=== PATIENT | female | born 1990 | race Asian ===

== ENCOUNTER 2018-12-26 16:30 | Emergency (ER) | payer SELFPAY ==
[~2018-12-26] VITALS: Ht 167.6 cm; Wt 83.4 kg
[2018-12-26 16:33] VITALS: Ht 167.6 cm; Wt 83.4 kg
[2018-12-26] MEDS ORDERED: ACET-141 PO (21:01)
--- NOTE | 2018-12-26 21:06 | ERD ---
ER Documentation Chief Complaint Chief Complaint Patient has a hearing deficit complains of vag bleed x 2 days HPI 28-year-old female with hearing deficit complaints of vaginal bleeding x2 days. Patient state that she is s, last period was about 2 months ago. She is currently going through about 2 pads per day. She did pass some clots today and thinks that she may have had a miscarriage. Denies any fevers. She has mild pelvic pain noted to be 2 out of 10. She also complains of mild dizziness. No modifying factors noted. No treatment tried at home. ROS All systems reviewed and are negative except as per history of present illness. Medications Home Meds Active Scripts Acetaminophen* (Acetaminophen*) 500 MG Extra Strength Tablet, 500 MG PO Q4H PRN for PAIN AND OR ELEVATED TEMP, #30 TAB Prov:JANNETTE MARTIN 12/26/18 Allergies Allergies: Coded Allergies: No Known Allergy (Unverified , 12/26/18) PMhx/Soc Medical and Surgical Hx: pt denies Surgical Hx History of Surgery: No Hx Neurological Disorder: No Hx Respiratory Disorders: No Hx Cardiac Disorders: No Hx Psychiatric Problems: No Hx Miscellaneous Medical Probl: Yes (hearing deficit) Hx Alcohol Use: No Hx Substance Use: No Hx Tobacco Use: No Smoking Status: Never smoker FmHx Family History: No coronary disease Physical Exam Vitals Vital Signs Date Temp Pulse Resp B/P (MAP) Pulse Ox O2 O2 Flow FiO2 Time Delivery Rate 12/26/18 97.9 85 20 138/80 100 16:33 (99) Physical Exam Const: No acute distress Resp: Clear to auscultation bilaterally Cardio: Regular rate and rhythm, no murmurs Abd: Soft, non tender, non distended. Normal bowel sounds Skin: No petechiae or rashes Back: No midline or flank tenderness Ext: No cyanosis, or edema Neur: Awake and alert Psych: Normal Mood and Affect Result Diagram: 12/26/181916 Results 24 hrs Laboratory Tests Test 12/26/18 19:17 White Blood Count 10.4 10^3/ul Red Blood Count 5.08 10^6/ul Hemoglobin 12.6 g/dl Hematocrit 38.6 % Mean Corpuscular Volume 76.0 fl Mean Corpuscular Hemoglobin 24.8 pg Mean Corpuscular Hemoglobin Concent 32.6 g/dl Red Cell Distribution Width 14.0 % Platelet Count 344 10^3/UL Mean Platelet Volume 10.7 fl Immature Granulocytes % 0.800 % Neutrophils % 57.5 % Lymphocytes % 31.8 % Monocytes % 6.8 % Eosinophils % 2.3 % Basophils % 0.8 % Nucleated Red Blood Cells % 0.0 /100WBC Immature Granulocytes # 0.080 10^3/ul Neutrophils # 6.0 10^3/ul Lymphocytes # 3.3 10^3/ul Monocytes # 0.7 10^3/ul Eosinophils # 0.2 10^3/ul Basophils # 0.1 10^3/ul Nucleated Red Blood Cells # 0.0 10^3/ul Urine Color YELLOW Urine Clarity CLEAR Urine pH 6.0 Urine Specific [place] 1.015 Urine Ketones NEGATIVE mg/dL Urine Nitrite NEGATIVE mg/dL Urine Bilirubin NEGATIVE mg/dL Urine Urobilinogen NEGATIVE mg/dL Urine Leukocyte Esterase NEGATIVE Juanita/ul Urine Microscopic RBC 41 /HPF Urine Microscopic WBC 1 /HPF Urine Bacteria FEW /HPF Urine Hemoglobin 3+ mg/dL Urine Glucose NEGATIVE mg/dL Urine Total Protein NEGATIVE mg/dl Beta HCG, Quantitative < 2.4 mIU/ml Procedures/MDM Medical Decision Making: Differential diagnosis includes but not limited to spontaneous , ovarian cyst, uterine fibroid, ectopic . Patient appeared well on physical examination. CBC showed no anemia, no elevated WBC to suggest systemic infection. UA did not indicate infection Beta hCG level was less than 2.4 Pelvic ultrasound showed no intrauterine gestation. Patient likely has miscarriage Advised that she will need to follow with HEEL SEAT FILLER if her bleeding or if she develops severe pain. Currently she has mild pain. Given prescription for Tylenol. Patient advised to follow up with PCP in 1-2 days. Patient advised to return to ED for new or worsening symptoms. Patient stable on discharge from the ED. Disclaimer: Inadvertent spelling and grammatical errors are likely due to EHR/dictation software use and do not reflect on the overall quality of patient care. Also, please note that the electronic time recorded on this note does not necessarily reflect the actual time of the patient encounter. Departure Diagnosis: Primary Impression: Miscarriage Condition: Fair Patient Instructions: Miscarriage, Spontaneous (Completed) Referrals: [facility] YOU HAVE RECEIVED A MEDICAL SCREENING EXAM AND THE RESULTS INDICATE THAT YOU DO NOT HAVE A CONDITION THAT REQUIRES URGENT TREATMENT IN THE EMERGENCY DEPARTMENT. FURTHER EVALUATION AND TREATMENT OF YOUR CONDITION CAN WAIT UNTIL YOU ARE SEEN IN YOUR DOCTORS OFFICE WITHIN THE NEXT 1-2 DAYS. IT IS YOUR RESPONSIBILITY TO MAKE AN APPOINTMENT FOR FOLOW-UP CARE. IF YOU HAVE A PRIMARY DOCTOR --you should call your primary doctor and schedule an appointment IF YOU DO NOT HAVE A PRIMARY DOCTOR YOU CAN CALL OUR PHYSICIAN REFERRAL HOTLINE AT IF YOU CAN NOT AFFORD TO SEE A PHYSICIAN YOU CAN CHOSE FROM THE FOLLOWING [facility] [address] [facility] [address] [place] [facility]. [facility] [address] [facility] [address] [facility] [address] [facility] [facility]. [address] Additional Instructions: Call your primary care doctor TOMORROW for an appointment during the next 1-2 days.See the doctor sooner or return here if your condition worsens before your appointment time. Follow up with HEEL SEAT FILLER if severe pain or heavy vaginal bleeding or return to ER. JANNETTE MARTIN DO December 26, 2018 21:06
[2018-12-26 21:13] VITALS: BP 141/91; PULSE 77; RESP 16
== END 2018-12-26 21:14 | disposition home or self-care (01) ==
LOC: FTE 16:30
DX: O03.9 Complete or unspecified spontaneous abortion without complication (principal); R10.2 Pelvic and perineal pain
CPT/HCPCS: 36415; 76801; 81001; 84702; 85025; 86900; 86901

== ENCOUNTER → 2019-02-28 | Emergency (ER) | payer MEDICAID ==
[~2019-02-28] VITALS: Ht 162.6 cm; Wt 82.4 kg
[~2019-02-28] MED LIST: ACET-141 PO; NORE-89 PO
[2019-02-28 09:32] VITALS: BP 122/56; PULSE 68; RESP 16; Ht 162.6 cm; Wt 82.4 kg
--- NOTE | 2019-02-28 11:22 | ERD ---
ER Documentation Chief Complaint Chief Complaint vag bleed since 01/29 , feels tired HPI 28-year-old female presenting with vaginal bleeding x1 month. Patient states that she passes clots. She had a miscarriage. She still having some bleeding and states she goes through 1 pad a day. She states she occasionally feels dizzy. Denies any chest pain or shortness of breath. Denies fevers. Denies other medical problems. NKDA. Surgical history denies. Social history denies ROS All systems reviewed and are negative except as per history of present illness. Medications Home Meds Active Scripts Norethindrone AC-Eth Estradiol (Loestrin 21 1.5-30 Tablet) 1 Each Tablet, 1 EACH PO DAILY, #28 TAB Prov:KEILY TRAYLOR PA-C 02/28/19 Acetaminophen* (Acetaminophen*) 500 MG Extra Strength Tablet, 500 MG PO Q4H PRN for PAIN AND OR ELEVATED TEMP, #30 TAB Prov:JANNETTE MARTIN DO 12/26/18 Allergies Allergies: Coded Allergies: No Known Allergy (Unverified , 12/26/18) PMhx/Soc History of Surgery: No Hx Neurological Disorder: No Hx Respiratory Disorders: No Hx Cardiac Disorders: No Hx Psychiatric Problems: No Hx Miscellaneous Medical Probl: Yes (DEAF) Hx Alcohol Use: No Hx Substance Use: No Hx Tobacco Use: No FmHx Family History: No diabetes, No coronary disease, No other Physical Exam Vitals Vital Signs Date Temp Pulse Resp B/P (MAP) Pulse Ox O2 O2 Flow FiO2 Time Delivery Rate 02/28/19 98.1 68 16 122/56 99 09:32 (78) Physical Exam GENERAL: The patient is well-appearing, well-nourished, in no acute distress HEENT: Atraumatic. Conjunctivae are pink. Pupils equal, round, and reactive to light. There is no scleral icterus. Tympanic membranes clear bilaterally. Oropharynx clear. CHEST: Clear to auscultation bilaterally. There are no rales, wheezes or rhonchi. HEART: Regular rate and rhythm. No murmurs, clicks, rubs or gallops. ABDOMEN:Soft, nontender and nondistended. Good bowel sounds. No rebound or guarding. No gross peritonitis. No gross organomegaly or masses. Result Diagram: 02/28/19 0946 Results 24 hrs Laboratory Tests Test 02/28/19 09:45 02/28/19 09:46 02/28/19 10:08 Beta HCG, Quantitative < 2.4 mIU/ml White Blood Count 10.1 10^3/ul Red Blood Count 5.57 10^6/ul Hemoglobin 13.2 g/dl Hematocrit 40.9 % Mean Corpuscular Volume 73.4 fl Mean Corpuscular Hemoglobin 23.7 pg Mean Corpuscular 32.3 g/dl Hemoglobin Concent Red Cell Distribution Width 13.7 % Platelet Count 321 10^3/UL Mean Platelet Volume 10.9 fl Immature Granulocytes % 0.900 % Neutrophils % 66.1 % Lymphocytes % 24.2 % Monocytes % 6.1 % Eosinophils % 1.9 % Basophils % 0.8 % Nucleated Red Blood Cells % 0.0 /100WBC Immature Granulocytes # 0.090 10^3/ul Neutrophils # 6.7 10^3/ul Lymphocytes # 2.5 10^3/ul Monocytes # 0.6 10^3/ul Eosinophils # 0.2 10^3/ul Basophils # 0.1 10^3/ul Nucleated Red Blood Cells # 0.0 10^3/ul Urine Color YELLOW Urine Clarity CLEAR Urine pH 6.0 Urine Specific [place] 1.012 Urine Ketones NEGATIVE mg/dL Urine Nitrite NEGATIVE mg/dL Urine Bilirubin NEGATIVE mg/dL Urine Urobilinogen NEGATIVE mg/dL Urine Leukocyte Esterase NEGATIVE Juanita/ul Urine Microscopic RBC 127 /HPF Urine Microscopic WBC 1 /HPF Urine Squamous Epithelial Cells FEW /HPF Urine Hemoglobin 3+ mg/dL Urine Glucose NEGATIVE mg/dL Urine Total Protein NEGATIVE mg/dl Procedures/[facility] DIAGNOSTIC IMAGING REPORT Patient: SNEHAL FERNANDEZ : 1990 Age: 28 Sex: F MR #: [id number] DOS: 02/28/19 0946 Ordering MD: BUNNY TRAYLOR PA-C [facility] Room/Bed: PROCEDURE: US Pelvis. CLINICAL INDICATION: vaginal bleeding TECHNIQUE: Multiple sonographic images of the pelvis were obtained utilizing a transabdominal and endovaginal technique. The images were reviewed on a PACS workstation. COMPARISON: None. FINDINGS: The uterus is normal in size and demonstrates a normal appearance of the myometrium. The uterus measures 5.9 x 3.1 x 3.6 cm in size. There are Nabothian cysts in the cervix. The endometrial stripe is heterogeneous in appearance and has the thickness of 11 mm. No intrauterine gestation is noted. The ovaries are normal in size and echogenicity. Normal Doppler flow is identified in both ovaries. The right ovary measures 2.7 x 1.8 x 2.7 cm. The left ovary measures 3.7 x 0.6 x 2.4 cm. No free fluid is present within the pelvis.. RPTAT: AA IMPRESSION: No intrauterine gestation visualized. Differential diagnosis includes early , missed or ectopic . Follow-up ultrasound and HCG levels is recommended. MDM: 28-year-old female presents with vaginal bleeding. Patient's hemoglobin is stable. Patient does not have significant pain on ultrasound. Patient likely is having post miscarriage bleeding with no signs of hemorrhage. Patient ultrasound is within normal limits. Patient is discharged with strict ER precautions and told to follow-up with primary care within 1 to 2 days for close evaluation. Patient is discharged with hormonal medication. All questions answered at discharge Departure Diagnosis: Primary Impression: Vaginal bleeding Condition: Stable Patient Instructions: Menorrhagia Referrals: MANAGER [place] [id number] [facility] [address] [place], [place] [id number] [address]ICE [address].ABUSLEME TIFFANY [address] [place] [place] [phone] [facility] [address] [place] [place] [phone] [facility] [address] [facility] [address] [address] [place], [place] [phone] [facility] [address] [place] [address] [address] [facility] [id number] - YASM[address] CABAN [address], [place] [phone] [address] SANABRIA, MEHUL [address] [facility] [address], [place] [address] [address] [address] [place] [address] Additional Instructions: FOLLOW UP WITH YOUR PRIMARY CARE PHYSICIAN TOMORROW.Return to this facility if you are not improving as expected. KEILY TRAYLOR PA-C Feb 28, 2019 11:22
== END | disposition home or self-care (01) ==
LOC: FTE 09:27
DX: O20.9 Hemorrhage in early pregnancy, unspecified (principal); Z3A.00 Weeks of gestation of pregnancy not specified
CPT/HCPCS: 36415; 76801; 76817; 81001; 84702; 85025; 86900; 86901

== ENCOUNTER 2019-03-15 15:51 | Emergency (ER) | payer MEDICAID ==
[~2019-03-15] VITALS: Ht 160 cm; Wt 82.3 kg
[2019-03-15 15:55] VITALS: Ht 160 cm; Wt 82.3 kg
--- NOTE | 2019-03-15 18:23 | ERD ---
ER Documentation Chief Complaint Chief Complaint Pt with c/o dyuria X 3 days. recently seen for VB . HPI History and physical exam and plan of care discussion performed via magazine publisher services This is a 28-year-old female patient who presents emergency room with complaint of lower pelvic pain and pain with urination over the last 3 days. No fevers, + back pain, + vaginal discharge, + vaginal itching, states that she has redness to bilateral labia with itching, denies vaginal bleeding. Patient states on December 29 she had a miscarriage and was prescribed medication to stop the bleeding, February 28 return to the emergency room for vaginal bleeding to which she underwent a D&C. She has not followed up with gynecology or her primary care provider. ROS All systems reviewed and are negative except as per history of present illness. Medications Home Meds Active Scripts Oon794/Iron/Folic/Dha ( Formula-Dha Softgel) 1 Each Capsule, 1 EACH PO DAILY for 30 Days, #30 CAP Prov:CROW CARUSO NP 03/15/19 Ibuprofen* (Motrin*) 600 Mg Tab, 600 MG PO Q6, #15 TAB Prov:CROW CARUSO NP 03/15/19 Acetaminophen* (Tylenol*) 325 Mg Tablet, 2 TAB PO Q8 PRN for PAIN AND OR ELEVATED TEMP, #20 TAB Prov:CROW CARUSO NP 03/15/19 Norethindrone AC-Eth Estradiol (Loestrin 21 1.5-30 Tablet) 1 Each Tablet, 1 EACH PO DAILY, #28 TAB Prov:KEILY TRAYLOR PA-C 02/28/19 Acetaminophen* (Acetaminophen*) 500 MG Extra Strength Tablet, 500 MG PO Q4H PRN for PAIN AND OR ELEVATED TEMP, #30 TAB Prov:JANNETTE MARTIN DO 12/26/18 Allergies Allergies: Coded Allergies: No Known Allergy (Unverified , 12/26/18) PMhx/Soc Medical and Surgical Hx: pt denies Medical Hx, pt denies Surgical Hx History of Surgery: No Hx Neurological Disorder: No Hx Respiratory Disorders: No Hx Cardiac Disorders: No Hx Psychiatric Problems: No Hx Miscellaneous Medical Probl: Yes (DEAF) Hx Alcohol Use: No Hx Substance Use: No Hx Tobacco Use: No Smoking Status: Never smoker FmHx Family History: No diabetes, No coronary disease, No other Physical Exam Vitals Vital Signs Date Temp Pulse Resp B/P (MAP) Pulse Ox O2 O2 Flow FiO2 Time Delivery Rate 03/15/19 98.0 71 16 146/80 100 Room Air 20:37 (102) 03/15/19 98.6 80 16 130/89 99 15:55 (103) Physical Exam Const: No acute distress Head: Atraumatic Eyes: Normal Conjunctiva ENT: Normal External Ears, Nose and Mouth. Neck: Full range of motion. No meningismus. Resp: Clear to auscultation bilaterally Cardio: Regular rate and rhythm, no murmurs Abd: Soft, non tender, non distended. Normal bowel sounds. Skin: No petechiae or rashes Back: No midline or flank tenderness, +Left sidedCVT Neur: Awake and alert, clear speech, steady gait Psych: Normal Mood and Affect Pelvic Exam: Abdomen: Nontender External Genitalia: Normal Skin, +folliculitis to BL upper thighs, no perineal lesions, no labial swelling Speculum: Thick yellow vaginal mucosa with blood from open cervix Bimanual: No adnexal masses or tenderness, cervix and mid pelvis tender to palpation Results 24 hrs Laboratory Tests Test 03/15/19 17:16 03/15/19 17:23 Urine Color STRAW Urine Clarity CLEAR Urine pH 6.0 Urine Specific [place] 1.002 Urine Ketones NEGATIVE mg/dL Urine Nitrite NEGATIVE mg/dL Urine Bilirubin NEGATIVE mg/dL Urine Urobilinogen NEGATIVE mg/dL Urine Leukocyte Esterase NEGATIVE Juanita/ul Urine Microscopic RBC 4 /HPF Urine Microscopic WBC 3 /HPF Urine Squamous Epithelial Cells FEW /HPF Urine Bacteria FEW /HPF Urine Hemoglobin 2+ mg/dL Urine Glucose NEGATIVE mg/dL Urine Total Protein NEGATIVE mg/dl POC Beta HCG, Qualitative NEGATIVE Procedures/MDM PROCEDURES/MDM History and physical exam and plan of care discussion performed via magazine publisher services DIAGNOSTIC IMAGING: Read by radiologist. IMPRESSION: Trace fluid in endocervical canal. Right ovary not seen. Otherwise unremarkable examination as noted above. LAB INTERPRETATION: Urinalysis negative for , negative for leukocyte esterase, nitrites MDM: This is a 28-year-old female patient who presents to the emergency room with complaint of intermittent pelvic pain x 3 days. States pain with urination and pain with walking, + vaginal itching, + vaginal discharge, no fevers, + back pain. Urinalysis does not indicate acute cystitis, beta hCG is negative. Pelvic exam did show bloody discharge from cervix, ultrasound negative for any abnormalities. Long discussion had with patient and via design maintenance engineer regarding symptoms, recovery from recent D&C, irregular periods and signs of menstruation, need for close follow-up with dock operations supervisor. Clinically, there is no current evidence to suggest meningitis, sepsis, acute abdomen, pneumonia, stroke, acute coronary syndrome, pulmonary embolism, aortic dissection or any other emergent condition appearing to require further evaluation or hospitalization. Patient counseled regarding my diagnostic impression and care plan. Prior to discharge all questions answered. DISPOSITION and PLAN: RX: vitamins, ibuprofen, Tylenol The patient has been discharge home to follow-up with community physician and dock operations supervisor. Departure Diagnosis: Primary Impression: Pelvic pain Condition: Stable CROW CARUSO NP Mar 15, 2019 18:22
[2019-03-15] MEDS ORDERED: PREN1CAP29 PO (20:31)
[2019-03-15] MEDS ORDERED: ACET325T33 PO (20:31)
[2019-03-15] MEDS ORDERED: IBUP-1542 PO (20:31)
[2019-03-15 20:37] VITALS: BP 146/80; PULSE 71; RESP 16
== END 2019-03-15 20:37 | disposition home or self-care (01) ==
LOC: FTE 15:51
DX: R10.2 Pelvic and perineal pain (principal)
CPT/HCPCS: 76830; 76856; 81001; 81025; Z7502